=== PATIENT | female | born 1980 ===

== ENCOUNTER 2019-01-28 09:40 | Emergency (ER) | payer OTHER ==
[~2019-01-28] VITALS: Ht 152.4 cm; Wt 83.9 kg
[2019-01-28] MEDS ORDERED: KETOROLAC TROME10 MG PO (12:13)
[2019-01-28] MEDS ORDERED: PREDNISONE10 M1 PO (12:13)
[2019-01-28] MEDS ORDERED: SKELAXIN800 MG PO (12:13)
== END 2019-01-28 15:30 | disposition home or self-care (01) ==
LOC: ER 09:40 → EMR PED 09:53 → ER 09:53 → EMR PED 15:30
DX: M75.51 Bursitis of right shoulder (principal); M54.2 Cervicalgia